=== PATIENT | male | born 1955 | race Caucasian/White ===

== ENCOUNTER → 2017-01-09 | Outpatient (CLI) | payer MEDICARE ==
[~2017-01-09] MED LIST: AMLODIPINE10 MG PO; AMLODIPINE5 M1 PO; ASPIR 8181 MG PO; B COMPLEX1 TA1 PO; CARVEDILOL3.125 M1 PO; CRESTOR10 MG PO; IMDUR 60MG. TAB60 MG PO; LISINOPRIL 10MG10 MG PO; NOMEDS XX; SYNTHROID 0.0.075 MG PO; TYLENOL W/CODEI1 TA2 PO
[2017-01-09 14:00] LABS: BUN 15 mg/dL (7-18)
[2017-01-09 14:02] LABS: GFR (ESTIMATED) 57 ML/MIN (>60)
== END ==
LOC: CARL-LAB 09:44
PROVIDERS: Specialist
DX: R42 Dizziness and giddiness (principal); I95.1 Orthostatic hypotension; G45.9 Transient cerebral ischemic attack, unspecified

== ENCOUNTER 2017-06-27 17:36 | Emergency (ER) | payer MEDICARE ==
[~2017-06-27] VITALS: Ht 182.9 cm; Wt 88.5 kg
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
--- OUTSIDE RECORDS SUMMARY | 2017-06-27 18:08 | External Medical Summary Rpt ---
Author Author , FRIDA GALICIA Address Unknown Phone [email or web address] Care Team Providers Care Electrical Engineering Drafting Officer Name Role Phone ALLRAN JR DURGA, ALLRAN Unavailable Unavailable JR DURGA OSEI HOL, OSEI Unavailable Unavailable HOL BEINEKE HERMILA, BEINEKE Unavailable Unavailable HERMILA BESSON VIVI, BESSON Unavailable Unavailable VIVI BAIRON SHANTELLE, Unavailable Unavailable BAIRON SHANTELLE FALLUJI ROBB, FALLUJI Unavailable Unavailable ROBB GAMBREL CARMELITA, GAMBREL Unavailable Unavailable CARMELITA [facility] Unavailable Unavailable [facility], [facility], Unavailable Unavailable [facility] Un[facility], [facility] Unavailable Unavailable MEDICAL G, [facility] MEDICAL G [facility], [facility] Unavailable Unavailable [facility] Un[facility], [facility], Unavailable Unavailable [facility] TABATHA VIVI, TABATHA Unavailable Unavailable VIVI [facility] Unavailable Unavailable INTERNAL MED, [facility] EVANGELISTA SCO, [facility] Unavailable Unavailable Truman Lamb MD, Unavailable Unavailable Truman Lamb MD [facility], Unavailable Unavailable [facility] Purpose Continuity of Care Document - 01-03-2014 through 2016 Problems Code Diagnosis DOS Provider Status M542 CERVICALGIA 09-15-2016 [facility] INTERNAL MED Z1211 ENCOUNTER 09-05-2016 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 Z23 ENCOUNTER 08-26-2016 [place] FOR [facility]LEY IMMUNIZATIO INTERNAL N MED E039 HYPOTHYROID 08-13-2016 [facility] UNSPECIFIED INC E785 HYPERLIPIDE 08-13-2016 [facility] UNSPECIFIED INC G2581 RESTLESS 08-13-2016 [facility] SYNDROME INC Z0000 ENCOUNTER 08-12-2016 [place] GEN ADULT VALLEY MED EXAM INTERNAL W/O MED ABNORMAL FIND R030 ELEVATED 08-01-2016 [facility] BLOOD-PRESS VALLEY URE READING INTERNAL WITHOUT DX MED HTN M5441 LUMBAGO 07-07-2016 [place] WITH VALLEY SCIATICA INTERNAL RIGHT SIDE MED [id number] UNS ROT 06-30-2016 [facility] TEAR/RUPT INC UNS SHOULDER NOT TRAUMAT L821 OTHER 05-20-2016 [place] SEBORRHEIC VALLEY KERATOSIS INTERNAL MED G8918 OTHER ACUTE 05-07-2016 [place] [facility] POST[facility]U [facility] RAL PAIN R86135 PAIN IN 05-07-2016 [place] [facility] RIGHT SERV SHOULDER [facility] L19736 INCMPL RC 05-07-2016 [place] [facility] TEAR/RUPT SERVICES RT SHOULDER NOT SPEC TRAUM M7521 BICIPITAL 05-07-2016 [place] [facility] TENDINITIS SERVICES RIGHT SHOULDER M7581 OTHER 05-07-2016 [place] [facility] LESIONS RIGHT SHOULDER R001 BRADYCARDIA 05-02-2016 [facility] UNSPECIFIED I639 CEREBRAL 04-11-2016 [facility] HEALTH UNSPECIFIED MEDICAL G L03686 ENCOUNTER 04-11-2016 [facility] PREPROCEDUR MEDICAL G AL CARIOVASCUL AR EXAM Z8673 PERSONAL HX 03-25-2016 [place] [facility] TIA & SERV CEREB [facility] INFARCT NO RESID DEFICIT [id number] OTHER 01-24-2016 [facility] SPECIFIC [facility] ARTHROPATHI INC ES NEC RIGHT SHOULDER [id number] EFFUSION 01-24-2016 [place] [facility] R609 EDEMA 01-24-2016 [place] [facility]PEC[facility] M1990 UNSPECIFIED 11-05-2015 [facility] OSTEOARTHRI INC TIS UNSPECIFIED SITE R062 WHEEZING 10-16-2015 [place] [facility] INTERNAL MED J159 UNSPECIFIED 10-09-2015 [place] BACTERIAL VALLEY PNEUMONIA INTERNAL MED M791 MYALGIA 10-02-2015 [place] INTERNAL MED 2724 OTHER AND 09-02-2015 [place] UNSPECIFIED VALLEY INTERNAL [facility] 57570 UNSPECIFIED 08-01-2015 [place] 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 98689 UNSPECIFIED 08-01-2015 [place] [facility] ARTHROPATHY INTERNAL SHOULDER MED REGION 7291 UNSPECIFIED 08-01-2015 [place] MYALGIA VALLEY AND INTERNAL MYOSITIS MED 244.9 244.9 01-05-2014 [place] HYPOTHYROID [facility] 401.0 401.0 01-05-2014 [place] MALIGNANT [facility] HYPERTENS Hospital N 441.4 441.4 ABDOM 01-05-2014 [place] AORTIC [facility] Allergies, Adverse Reactions, Alerts Type Drug Allergy Adverse Reaction to Substance Substance Reaction Severity Nkda - No Known Drug Unknown Unknown Allergies Medications Na ND Rx Da Fi Fi Am Da Di Ph RX Ph St me C No te ll ll ou ys ag ar # ys at rm s nt no ma ic us Or Da si cy ia de te s n re d IS 68 02 0 No OS 08 -0 OR 40 6- Lo BI 59 20 ng DE 10 14 er 1 MN Ac ti ER ve 30 MG TA BL ET AM 51 02 1 No LO 07 -0 DI 90 5- Lo PI 45 20 ng NE 22 14 er 0 BE Ac SY ti LA ve TE 10 MG TA B SY 00 02 1 No NT 07 -0 HR 44 5- Lo OI 55 20 ng D 21 14 er 50 1 Ac MC ti G ve TA BL ET NT 00 02 1 No G 40 -0 0. 91 4- Lo 2 48 20 ng MG 20 14 er /M 2 L Ac IN ti ve D5 W AM 51 02 1 No LO 07 -0 DI 90 4- Lo PI 45 20 ng NE 22 14 er 0 BE Ac SY ti LA ve TE 10 MG TA B LO 00 02 2 No VE 07 -0 NO 50 4- Lo X 62 20 ng 40 04 14 er 1 MG Ac /0 ti .4 ve ML SY RI NG E IS 00 02 0 No OV 27 -0 UE 01 4- Lo -3 31 20 ng 70 65 14 er 2 76 Ac % ti IN ve FU S RACHAEL TT LE RA 63 02 0 No D- 80 -0 SA 70 4- Lo LI 10 20 ng NE 07 14 er 5A FL Ac US ti H ve 10 ML SY RI NG E MA 00 02 2 No PA 90 -0 P 41 4- Lo 32 98 20 ng 5 26 14 er MG 1 Ac TA ti BL ve ET Immunization Name Date Rout CVX Reac Dose Comm Prov Is Faci e tion ent ider Refu lity Give sed n IIV4 11-0 158 YOLY No LICK 3-20 ON ING VACC 15 VIVI VALL EY SPLI INTE T RNAL VIRU MED S 0.5 ML DOS FOR IM USE Vital Signs 01-05-2014 16:30 Name Value Interpretat Reference Comment ion Range Body 97.9 [degF] Temperature BP 85 mm[Hg] Diastolic BP Systolic 125 mm[Hg] Heart 55 /min Rate/Pulse Respiratory 16 /min Rate 01-05-2014 16:00 Name Value Interpretat Reference Comment ion Range O2% 96 % 01-03-2014 17:15 Name Value Interpretat Reference Comment ion Range O2% 97 % 01-03-2014 16:41 Name Value Interpretat Reference Comment ion Range Body 98.0 [degF] Temperature BP 94 mm[Hg] Diastolic BP Systolic 158 mm[Hg] Heart 52 /min Rate/Pulse Height 182.88 cm Respiratory 16 /min Rate Weight 179 [lb_av] Measured Weight 81.222 kg Measured Results Labs Lab Lab Date Result Refere Interp Status Commen Order Detail nces retati t Range on BASIC METABOLIC PANEL (01-05-2014 06:00) Glucose 91 74-106 complet 014 mg/dL ed Bld-mCn 06:00 c BUN 19 7-18 complet Bld-mCn 014 mg/dL ed c 06:00 Creat 1.4 0.8-1.3 complet SerPl-m 014 mg/dL ed Cnc 06:00 Creat 69 50-200 complet Cl 014 ML/MIN ed predict 06:00 ed SerPl C-G-vRa te GFR/BSA 52 Greater complet .pred 014 ML/MIN than ed SerPl 06:00 60 Schwart z-vRate Sodium 141 136-145 complet SerPl-s 014 mmoL/L ed Cnc 06:00 Potassi 3.9 3.5-5.1 complet um 014 mmoL/L ed SerPl-s 06:00 Cnc Chlorid 102 98-107 complet e 014 mmoL/L ed SerPl-s 06:00 Cnc CO2 02-06-2 30 21.0-32 complet SerPl-s 014 mmoL/L .0 ed Cnc 06:00 Calcium 8.6 8.5-10. complet 014 mg/dL 1 ed SerPl-m 06:00 Cnc CBC with AUTO DIFF (01-05-2014 06:00) WBC # --2 5.9 4.8-10. complet Bld 014 K/MM3 8 ed Auto 06:00 RBC # 01-05-2 3.76 4.6-6.2 complet Bld 014 M/mm3 ed Auto 06:00 Hgb 2 11.9 14.1-18 complet Bld-mCn 014 g/dL .0 ed c 06:00 Hct Fr 35.6 % 42.0-52 complet Bld 014 .0 ed 06:00 MCV RBC 94.8 fl 82.2-97 complet 014 .8 ed 06:00 MCH RBC 31.7 pg 27-31.2 complet Qn 014 ed Auto 06:00 MEAN 33.4 31.8-35 complet CORPUSC 014 g/dl .4 ed ULAR 06:00 HGB CONC RDW RBC 17.0 % 11.5-17 complet Auto 014 .5 ed 06:00 Platele 237 142-424 complet t Bld 014 K/mm3 ed Ql 06:00 Manual MEAN 9.0 fl 7.4-10. complet PLATELE 014 4 ed T 06:00 VOLUME Granulo 72.7 % 37.0-80 complet cytes 014 .0 ed Fr Bld 06:00 Auto LYMPH % 2 18.9 % 10-50 complet 014 ed 06:00 Monocyt 6.7 % 1.7-9.3 complet es Fr 014 ed Bld 06:00 Auto Eosinop 2 1.0 % 0.1-12. complet hil Fr 014 0 ed Bld 06:00 Auto Basophi 2 0.7 % 0.1-2.0 complet ls Fr 014 ed Bld 06:00 Auto Granulo 01-05-2 4.3 1.3-8.0 complet cytes # 014 K/mm3 ed Bld 06:00 Auto Lymphoc 1.1 0.7-4.5 complet ytes Fr 014 K/mm3 ed Bld 06:00 Auto Monocyt 0.4 0.1-1.0 complet es # 014 K/mm3 ed Bld 06:00 Auto Eosinop 0.1 0.0-0.4 complet hil # 014 K/mm3 ed Bld 06:00 Auto Basophi 0.0 0-0.2 complet ls # 014 K/MM3 ed Bld 06:00 Auto BASIC METABOLIC PANEL (01-04-2014 06:05) Glucose 110 74-106 complet 014 mg/dL ed Bld-mCn 06:05 c BUN 14 7-18 complet Bld-mCn 014 mg/dL ed c 06:05 Creat 1.4 0.8-1.3 complet SerPl-m 014 mg/dL ed Cnc 06:05 Creat 69 50-200 complet Cl 014 ML/MIN ed predict 06:05 ed SerPl C-G-vRa te GFR/BSA 52 Greater complet .pred 014 ML/MIN than ed SerPl 06:05 60 Schwart z-vRate Sodium 139 136-145 complet SerPl-s 014 mmoL/L ed Cnc 06:05 Potassi 3.5 3.5-5.1 complet um 014 mmoL/L ed SerPl-s 06:05 Cnc Chlorid 103 98-107 complet e 014 mmoL/L ed SerPl-s 06:05 Cnc CO2 31 21.0-32 complet SerPl-s 014 mmoL/L .0 ed Cnc 06:05 Calcium 8.5 8.5-10. complet 014 mg/dL 1 ed SerPl-m 06:05 Cnc CBC with AUTO DIFF (01-04-2014 06:05) WBC # 05-2 8.0 4.8-10. complet Bld 014 K/mm3 8 ed Auto 06:05 RBC # 01-04-2 3.63 4.6-6.2 complet Bld 014 M/mm3 ed Auto 06:05 Hgb 02-05-2 10.8 14.1-18 complet Bld-mCn 014 g/dL .0 ed c 06:05 Hct Fr 33.5 % 42.0-52 complet Bld 014 .0 ed 06:05 MCV RBC 92.4 fL 82.2-97 complet 014 .8 ed 06:05 MCH RBC 29.8 pg 27-31.2 complet Qn 014 ed Auto 06:05 MEAN 32.2 31.8-35 complet CORPUSC 014 g/dl .4 ed ULAR 06:05 HGB CONC RDW RBC 16.4 % 11.5-17 complet Auto 014 .5 ed 06:05 Platele 240 142-424 complet t Bld 014 K/mm3 ed Ql 06:05 Manual Granulo 83.0 % 37.0-80 complet cytes 014 .0 ed Fr Bld 06:05 Auto LYMPH % 13.8 % 10-50 complet 014 ed 06:05 Monocyt 3.2 % 1.7-9.3 complet es Fr 014 ed Bld 06:05 Auto Granulo 6.6 1.3-8.0 complet cytes # 014 K/mm3 ed Bld 06:05 Auto Lymphoc 1.1 0.7-4.5 complet ytes Fr 014 K/mm3 ed Bld 06:05 Auto Monocyt 0.3 0.1-1.0 complet es # 014 K/mm3 ed Bld 06:05 Auto URINALYSIS/COMPLETE (01-03-2014 19:15) URINE YELLOW YELLOW complet COLOR 014 ed 19:15 URINE Sl CLEAR complet APPEARA 014 Cloudy ed NCE 19:15 URINE NEGATIV NEG complet GLUCOSE 014 E ed - 19:15 DIPSTIC K URINE NEGATIV NEG complet BILIRUB 014 E ed IN - 19:15 DIPSTIC K URINE NEGATIV NEG complet KETONE 014 E mg/dL ed 19:15 URINE 1.025 1.005-1 complet SPECIFI 014 UNK .030 ed C 19:15 GRAVITY URINE 2+ NEG complet BLOOD 014 ed 19:15 URINE 7.0 UNK 5.0-8.5 complet PH 014 ed 19:15 URINE 2+ NEG complet PROTEIN 014 mg/dL ed - 19:15 DIPSTIC K URINE 0.2 NEG complet UROBILI 014 E.U./dL ed NOGEN - 19:15 DIPSTIC K URINE NEGATIV NEG complet NITRATE 014 E ed - 19:15 DIPSTIC K URINE NEGATIV NEG complet LEUK 014 E ed ESTERAS 19:15 E URINE 20-50 0 complet RBC 014 rbc/hpf ed 19:15 URINE 20-50 O complet WBC 014 wbc/hpf ed 19:15 URINE 3-5 OCC complet SQUAMOU 014 #/hpf ed S CELLS 19:15 COMPREHENSIVE METABOLIC PANEL (01-03-2014 17:00) Glucose 108 74-106 complet 014 mg/dL ed Bld-mCn 17:00 c BUN 16 7-18 complet Bld-mCn 014 mg/dL ed c 17:00 Creat 1.3 0.8-1.3 complet SerPl-m 014 mg/dL ed Cnc 17:00 Creat 73 50-200 complet Cl 014 ML/MIN ed predict 17:00 ed SerPl C-G-vRa te GFR/BSA 57 Greater complet .pred 014 ML/MIN than ed SerPl 17:00 60 Schwart z-vRate Sodium 140 136-145 complet SerPl-s 014 mmoL/L ed Cnc 17:00 Potassi 4.3 3.5-5.1 complet um 014 mmoL/L ed SerPl-s 17:00 Cnc Chlorid 103 98-107 complet e 014 mmoL/L ed SerPl-s 17:00 Cnc CO2 31 21.0-32 complet SerPl-s 014 mmoL/L .0 ed Cnc 17:00 Calcium 8.6 8.5-10. complet 014 mg/dL 1 ed SerPl-m 17:00 Cnc Prot 01-03-2 7.1 6.4-8.2 complet SerPl-m 014 gm/dL ed Cnc 17:00 Albumin 02--2 3.3 3.4-5.0 complet 014 gm/dL ed SerPl-m 17:00 Cnc Globuli 01-03-2 3.8 1.3-3.2 complet n 014 gm/dL ed Ser-mCn 17:00 c Albumin 01-03-2 0.9 UNK 1.1-1.8 complet /Glob 014 ed SerPl-m 17:00 Rto Bilirub 01-03-2 0.2 0.2-1.0 complet 014 mg/dL ed SerPl-m 17:00 Cnc AST 01-03-2 17 U/L 15-37 complet SerPl-c 014 ed Cnc 17:00 ALT 01-03-2 18 U/L 12-78 complet SerPl-c 014 ed Cnc 17:00 ALP 01-03-2 105 U/L 50-136 complet SerPl-c 014 ed Cnc 17:00 THYROID STIM HORMONE (01-03-2014 17:00) THYROID 2 116.01 0.358-3 complet STIM 014 uIU/ml .740 ed HORMONE 17:00 T3Free SerPl-mCnc (01-03-2014 17:00) T3Free 01-03-2 2 pg/dL 230-420 complet SerPl-m 014 ed Cnc 17:00 T4 Free SerPl-mCnc (01-03-2014 17:00) T4 Free 01-03-2 0.27 0.76-1. complet 014 ng/dL 46 ed SerPl-m 17:00 Cnc D Dimer PPP (01-03-2014 17:00) D Dimer 01-03-2 1600 0-400 High complet PPP 014 ng/mL alert ed 17:00 CBC with AUTO DIFF (01-03-2014 17:00) WBC # 02-04-2 12.3 4.8-10. complet Bld 014 K/MM3 8 ed Auto 17:00 RBC # 02-04-2 3.64 4.6-6.2 complet Bld 014 M/mm3 ed Auto 17:00 Hgb 02-04-2 11.6 14.1-18 complet Bld-mCn 014 g/dL .0 ed c 17:00 Hct Fr 01-03-2 34.9 % 42.0-52 complet Bld 014 .0 ed 17:00 MCV RBC 04-2 95.8 fl 82.2-97 complet 014 .8 ed 17:00 MCH RBC 2 31.8 pg 27-31.2 complet Qn 014 ed Auto 17:00 MEAN 2 33.2 31.8-35 complet CORPUSC 014 g/dl .4 ed ULAR 17:00 HGB CONC RDW RBC 04-2 16.6 % 11.5-17 complet Auto 014 .5 ed 17:00 Platele 01-03-2 231 142-424 complet t Bld 014 K/mm3 ed Ql 17:00 Manual MEAN 2 9.4 fl 7.4-10. complet PLATELE 014 4 ed T 17:00 VOLUME Granulo -04-2 90.9 % 37.0-80 complet cytes 014 .0 ed Fr Bld 17:00 Auto LYMPH % -04-2 5.0 % 10-50 complet 014 ed 17:00 Monocyt 02-04-2 3.8 % 1.7-9.3 complet es Fr 014 ed Bld 17:00 Auto Eosinop 02-04-2 0.1 % 0.1-12. complet hil Fr 014 0 ed Bld 17:00 Auto Basophi -04-2 0.2 % 0.1-2.0 complet ls Fr 014 ed Bld 17:00 Auto Granulo -04-2 11.2 1.3-8.0 complet cytes # 014 K/mm3 ed Bld 17:00 Auto Lymphoc -04-2 0.6 0.7-4.5 complet ytes Fr 014 K/mm3 ed Bld 17:00 Auto Monocyt 02-04-2 0.5 0.1-1.0 complet es # 014 K/mm3 ed Bld 17:00 Auto Eosinop 02-04-2 0.0 0.0-0.4 complet hil # 014 K/mm3 ed Bld 17:00 Auto Basophi -04-2 0.0 0-0.2 complet ls # 014 K/MM3 ed Bld 17:00 Auto Procedures Procedure DOS Code Location Performer Comment CYANOCOBA 84641 [facility] PALLAVI [facility] VITAMIN INC INC B-12 [place] [address] [facility] MAGNESIUM 6 [facility] INC INC COLLECTIO 87279 [facility] N VENOUS 6 [facility] BLOOD INC INC VENIPUNCT URE COMPREHEN 22564 [facility] SIVE 6 [facility] [place] [address] [facility] THYROID 6 [facility] STIMULATI INC INC NG HORMONE TSH LIPID 27975 [facility] PANEL 6 [facility] INC INC BLOOD 88771 [facility] COUNT 6 [facility] COMPLETE INC INC AUTO&AUTO DIFRNTL WBC THERAPEUT 87494 [facility] COL[facility] IC PX 1/> 6 [facility] AREAS INC INC EACH 15 MIN EXERCISES THERAPEUT 11271 [facility] COLMENARES IC PX 1/> 6 [facility] AREAS INC INC EACH 15 MIN EXERCISES THERAPEUT 65185 [facility] IC 6 [facility] PROPHYLAC INTERNAL TIC/DX MED INJECTION SUBQ/IM INJECTION J3301 [facility] O[facility]I 6 [facility] HOL TRIAMCINO INTERNAL LONE MED ACETONIDE NOS 10 MG UNCLASSIF J3490 [facility] IED DRUGS 6 [facility] INC INC APPL 24071 [facility] MODALITY 6 [facility] 1/> AREAS INC INC ULTRASOUN D EA 15 MIN THERAPEUT 65198 [facility] CAPPSON IC PX 1/> 6 [facility] AREAS INC INC EACH 15 MIN EXERCISES APPL 54565 [facility] MODALITY 6 [facility] 1/> AREAS INC INC IONTOPHOR ESIS EA 15 MIN THERAPEUT 06065 [facility] COLMENARES IC PX 1/> 6 [facility] AREAS INC INC EACH 15 MIN EXERCISES THERAPEUT 58675 [facility] COLMENARES IC PX 1/> 6 [facility] AREAS INC INC EACH 15 MIN EXERCISES THERAPEUT 07569 [facility]EDRA IC PX 1/> 6 [facility] AREAS INC INC EACH 15 MIN EXERCISES THERAPEUT 66870 [facility] COLMENARES IC PX 1/> 6 [facility] AREAS INC INC EACH 15 MIN EXERCISES THERAPEUT 26203 [facility] COLMENARES IC PX 1/> 6 [facility] AREAS INC INC EACH 15 MIN EXERCISES THERAPEUT 82308 [facility] COLMENARES IC PX 1/> 6 [facility] AREAS INC INC EACH 15 MIN EXERCISES THERAPEUT 18870 [facility] COLMENARES IC PX 1/> 6 [facility] AREAS INC INC EACH 15 MIN EXERCISES MANUAL 26434 [facility] THERAPY 6 [facility] TQS 1/> [facility] INC REGIONS EACH 15 MINUTES E-STIM G0283 [facility] COLMENARES 1/> AREAS 6 [facility] OT THAN [facility] INC WND CARE PART TX PLAN E-STIM G0283 [facility] 1/> AREAS 6 [facility] WND CARE PART TX PLAN THERAPEUT 68790 [facility] COLMENARES IC PX 1/> 6 [facility] AREAS INC INC EACH 15 MIN EXERCISES THERAPEUT 48001 [facility] COLMENARES IC PX 1/> 6 [facility] AREAS INC INC EACH 15 MIN EXERCISES MANUAL 08631 [facility] THERAPY 6 [facility] TQS 1/> [facility] INC REGIONS EACH 15 MINUTES E-STIM G0283 [facility] COLMENARES 1/> AREAS 6 [facility] OT THAN INC INC WND CARE PART TX PLAN PHYSICAL 96796 [facility] THERAPY 6 [facility] EVALUATIO INC INC N SINGLE [address]97 [place] NERVE 6 MEDICAL VIVI BLOCK SERV INJECTION FOUNDATIO ARM N NERVE ARTHROSCO 25591 [place] [facility]IST[place] SCO PY 6 MEDICAL SHOULDER SERV ROTATOR FOUNDATIO CUFF N REPAIR ANES 65207 [place] GAMBREL ARTHRS 6 MEDICAL CARMELITA HUMERAL SERVICES H/N STRNCLAV & SHOULDER NOS ARTHROSCO [address] [place] [facility]ANGEL[facility] SCO PY 6 MEDICAL SHOULDER SERV W/[place] [address] [place] GUIDANCE 6 MEDICAL VIVI NEEDLE SERV PLACEMENT FOUNDATIO IMG S&I N ARTHROSCO 99368 [place] [facility] SCO PY 6 MEDICAL SHOULDER SERV BICEPS FOUNDATIO TENODESIS N ECG 03830 [facility] ROUTINE 6 Y Y ECG HOSPITAL HOSPITAL W/LEAST 12 LDS TRCG ONLY W/O I&R ECG 33240 [place] [facility] [facility] ROUTINE 6 MEDICAL ECG SERV W/LEAST FOUNDATIO 12 LDS N I&R ONLY HRT 0001F [facility] BESSON FAILURE 6 VALLEY VIVI ASSESSED INTERNAL MED ECG 07581 [facility] ROUTINE 6 [facility] ECG MEDICAL W/LEAST G 12 LDS W/I&R INJECTION J3301 [place] EV[place]ELIST[place] SCO 6 MEDICAL TRIAMCINO SERV LONE FOUNDATIO ACETONIDE N NOS 10 MG ARTHROCEN 11622 MIGUEL ÁNGEL EV[facility]A SCO TESIS 6 MEDICAL ASPIR&/IN SERV J MAJOR FOUNDATIO JT/BURSA N W/O US MRI ANY [address]196 [place] BAIRON JT UPPER 6 MEDICAL SHANTELLE EXTREMITY IMAGING W/O ASS CONTRAST MATRL THERAPEUT 58765 [facility] COL[facility] IC PX 1/> 5 [facility] AREAS INC INC EACH 15 MIN EXERCISES THERAPEUT 57421 [facility] COL[facility] IC PX 1/> 5 [facility] AREAS INC INC EACH 15 MIN EXERCISES E-STIM G0283 [facility] 1/> AREAS 5 [facility] WND CARE PART TX PLAN THERAPEUT 98052 [facility] COL[facility]ARES IC PX 1/> 5 [facility] AREAS INC INC EACH 15 MIN EXERCISES APPL 76588 [facility] MODALITY 5 [facility] 1/> AREAS INC INC ULTRASOUN D EA 15 MIN APPL 46536 [facility] MODALITY 5 [facility] 1/> AREAS INC INC ULTRASOUN D EA 15 MIN MANUAL 48268 [facility] THERAPY 5 [facility] TQS 1/> INC INC REGIONS EACH 15 MINUTES UNCLASSIF J3490 [facility] IED DRUGS 5 [facility] INC INC THERAPEUT 80596 [facility] COL[facility] IC PX 1/> 5 [facility] AREAS INC INC EACH 15 MIN EXERCISES APPL 26594 [facility] MODALITY 5 [facility] 1/> AREAS INC INC IONTOPHOR ESIS EA 15 MIN APPL 85288 [facility] MODALITY 5 [facility] 1/> AREAS INC INC IONTOPHOR ESIS EA 15 MIN THERAPEUT 75779 [facility] COLMENARES IC PX 1/> 5 [facility] INC EACH 15 MIN EXERCISES UNCLASSIF J3490 [facility] IED DRUGS 5 [facility] INC PHYSICAL 66021 [facility] THERAPY 5 [facility] EV[facility] INC INC N RADEX 81475 [place] EUGEN[facility] SHOULDER 5 MEDICAL HERMILA COMPLETE IMAGING MINIMUM 2 ASS VIEWS DEMO&/MARYLOU 57931 [facility] L OF PT 5 [facility] UTILIZ INTERNAL AERSL MED GEN/NEB/I NHLR/IP THERAPEUT 76226 [facility] IC 5 [facility] PROPHYLAC INTERNAL TIC/DX MED INJECTION SUBQ/IM NONINVASI 63291 [facility] VE 5 [facility] EAR/PULSE INTERNAL OXIMETRY MED SINGLE DETER INJECTION J0696 [facility] 5 [facility] CEFTRIAXO INTERNAL NE SODIUM MED PER 250 MG IM ADM 16123 [facility] PRQ ID 5 [facility] SUBQ/IM INTERNAL NJXS 1 MED VACCINE IIV4 VACC 34899 [facility] SPLIT 5 [facility] VIRUS 0.5 INTERNAL ML DOS MED FOR IM USE COLLECTIO 95090 [facility] N VENOUS 5 [facility] BLOOD INTERNAL VENIPUNCT MED URE Encounters Encounter Start End Date Code Location Performer Type Date OFFICE 57921 [facility] OUT[facility]IEN 6 6 [facility] T VISIT INTERNAL 15 MED MINUTES OFFICE 92579 [facility] MEGAN ARNDT OUTPATIEN 6 6 PHYSICIAN DURGA T NEW 20 S GROUP MINUTES OFFICE 09955 [place] [facility] OUTPATI[facility] 6 6 MEDICAL T VISIT SERV 15 FOUNDATIO MINUTES N OFFICE 26421 [facility] 6 6 [facility] T VISIT INTERNAL 15 MED MINUTES [facility]OSP[facility] - 6 6 [facility] INC T OFFICE 13694 [facility] OUT[facility]IEN 6 6 [facility] T VISIT INTERNAL 25 MED MINUTES OFFICE 74759 [facility] OUTPATIEN 6 6 [facility] T VISIT 5 INTERNAL MINUTES MED OFFICE 76924 [facility] 6 6 [place] [facility] T VISIT INTERNAL 15 MED MINUTES OFFICE 13629 [facility] 6 6 [place] [facility] T VISIT INTERNAL 15 MED MINUTES [facility] - 6 6 [facility] OUTPATIEN COUNTS INCLUDE 234 [facility] AT [facility] - 6 6 [facility] OUTPATIEN INC T OFFICE 21630 [facility] OUTPATIEN 6 6 [place] [facility] T VISIT INTERNAL 15 MED MINUTES HOSPITAL [facility] - 6 6 [facility] OUTPATIEN [facility] T OFFICE 15817 UNIV[facility] OUTPATIEN 6 6 Y T VISIT 5 HOSPITAL MINUTES [facility] 40950 [facility] OUTPATIEN 6 6 [facility] T VISIT INTERNAL 15 MED MINUTES OFFICE 33928 [facility] OUTPATIEN 6 6 [place] [facility] T VISIT 5 INTERNAL MINUTES MED OFFICE 75027 [facility] 6 6 [facility] ROB[facility] T VISIT MEDICAL 25 G MINUTES OFFICE 81366 MIGUEL ÁNGEL ANGLINO OUTPATIEN 6 6 MEDICAL T VISIT SERV 25 FOUNDATIO MINUTES N OFFICE 39984 MIGUEL ÁNGEL ANGLINO CONSULTAT 6 6 MEDICAL ION SERV NEW/ESTAB F[facility]ATIO PATIENT N 60 MIN [facility]PITAL [facility] - 6 6 [facility] OUTPATIEN INC T OFFICE 68381 [facility] OUTPATIEN 6 6 [place] V[facility] T VISIT INTERNAL 15 MED MINUTES HOSPITAL [facility] - 5 5 [facility] OUTPATIEN INC [facility] D[facility]RA - 5 5 [facility] OUTPATIEN INC T OFFICE 48679 [facility] OUTPATIEN 5 5 [place] VIV[facility] T VISIT INTERNAL 15 MED MINUTES OFFICE 34733 [facility] OUTPATIEN 5 5 [place] [facility] T VISIT INTERNAL 15 MED MINUTES OFFICE 81224 [facility] OUT[facility] 5 5 [place] [facility] T VISIT INTERNAL 15 MED MINUTES OFFICE 83925 [facility] OUT[facility] 5 5 [place] [facility] T VISIT INTERNAL 15 MED MINUTES OFFICE 11904 [facility] OUT[facility]IEN 5 5 [place] V[facility] T VISIT INTERNAL 25 MED MINUTES Inpatient [facility] Dedra Lamb MD (IN) 4 16:24 4 16:30 [facility]
--- OUTSIDE RECORDS SUMMARY | 2017-06-27 18:08 | External Medical Summary Rpt ---
Author Author , FRIDA GALICIA Address Unknown Phone [email or web address] Care Team Providers Care Brick Machine Operator Name Role Phone ALLRAN JR DURGA, ALLRAN Unavailable Unavailable JR DURGA OSEI HOL, OSEI Unavailable Unavailable HOL BEINEKE HERMILA, BEINEKE Unavailable Unavailable HERMILA BESSON VIVI, BESSON Unavailable Unavailable VIVI BAIRON SHANTELLE, Unavailable Unavailable BAIRON SHANTELLE FALLUJI ROBB, FALLUJI Unavailable Unavailable ROBB GAMBREL CARMELITA, GAMBREL Unavailable Unavailable CARMELITA [facility] Unavailable Unavailable INC, [facility], Unavailable Unavailable [facility] Un[facility] Unavailable [facility], [facility] Unavailable [facility]available MEDICAL G, [facility] G [facility], [facility] Unavailable Unavailable [facility], Un[facility]available [facility] TABATHA VIVI, TABATHA Unavailable Unavailable VIVI [facility] Unavailable Unavailable INTERNAL MED, [facility] INTERNAL MED [facility], [facility] Unavailable Unavailable Truman Lamb MD, Unavailable Unavailable Truman Lamb MD [facility], Unavailable Unavailable [facility] Purpose Continuity of Care Document - 01-03-2014 through 2016 Problems Code Diagnosis DOS Provider Status M542 CERVICALGIA 09-15-2016 [facility] INTERNAL MED Z1211 ENCOUNTER 09-05-2016 [facility] SCREENING PHYSICIANS MALIGNANT GROUP NEOPLASM OF COLON L19169 UNS 08-28-2016 [facility] TENDON RT UPPER ARM [id number] COMPLETE 08-28-2016 [facility] SERV TEAR/RUPT [facility]OUND[facility] RT SHLDR NOT TRAUMAT Z9889 OTHER 08-28-2016 [place] [facility] SPECIFIED SERV POSTPROCEDU [facility] STATES I10 ESSENTIAL 08-26-2016 [facility] HYPERTENSIO INTERNAL N MED I2510 ASHD [place] BAND 08-26-2016 [place] 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 MED H43979 UNS ROT 06-30-2016 [facility] TEAR/RUPT INC UNS SHOULDER NOT TRAUMAT L821 OTHER 05-20-2016 [facility] SEBORRHEIC [facility]LEY KERATOSIS INTERNAL MED G8918 OTHER ACUTE 05-07-2016 [facility] POSTPROCEDU [facility] RAL PAIN J52157 PAIN IN 05-07-2016 [facility] RIGHT SERV SHOULDER [facility] S04180 INCMPL RC 05-07-2016 [facility] TEAR/RUPT SERVICES RT SHOULDER NOT SPEC TRAUM M7521 BICIPITAL 05-07-2016 [facility] TENDINITIS SERVICES RIGHT SHOULDER M7581 OTHER 05-07-2016 [facility] LESIONS RIGHT SHOULDER R001 BRADYCARDIA 05-02-2016 [facility] UNSPECIFIED I639 CEREBRAL 04-11-2016 [facility] UNSPECIFIED MEDICAL G U03598 ENCOUNTER 04-11-2016 [facility] PREPROCEDUR MEDICAL G AL CARIOVASCUL AR EXAM Z8673 PERSONAL HX 03-25-2016 [facility] TIA & SERV CEREB [facility] INFARCT NO RESID DEFICIT I76552 OTHER 01-24-2016 [facility] SPECIFIC [facility] ARTHROPATHI INC ES NEC RIGHT SHOULDER O79070 EFFUSION 01-24-2016 [facility] RIGHT MEDICAL SHOULD[facility] R609 EDEMA 01-24-2016 [facility] UNSPECIFIED [facility]ICAL IM[facility]ING ASS M1990 UNSPECIFIED 11-05-2015 [facility] OSTEOARTHRI INC TIS UNSPECIFIED SITE R062 WHEEZING 10-16-2015 [facility] INTERNAL MED J159 UNSPECIFIED 10-09-2015 [facility] BACTERIAL VALLEY PNEUMONIA INTERNAL MED M791 MYALGIA 10-02-2015 [facility] INTERNAL MED 2724 OTHER AND 09-02-2015 [facility] UNSPECIFIED VALLEY INTERNAL HYPERLIPIDE [facility] 77666 UNSPECIFIED 08-01-2015 [place] 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 95578 UNSPECIFIED 08-01-2015 [facility] ARTHROPATHY INTERNAL SHOULDER MED REGION 7291 UNSPECIFIED 08-01-2015 [facility] MYALGIA VALLEY AND INTERNAL MYOSITIS MED 244.9 244.9 01-05-2014 [facility]ID [facility] 401.0 401.0 01-05-2014 [facility] MALIGNANT [facility] N 441.4 441.4 ABDOM 01-05-2014 [facility] AORTIC [facility] Allergies, Adverse Reactions, Alerts Type Drug Allergy [...] Procedure DOS Code Location Performer Comment CYANOCOBA 85760 [facility] PALLAVI 6 [facility] VITAMIN [place] [address] [facility] MAGNESIUM 6 [facility] INC INC COLLECTIO 58584 [facility] N VENOUS 6 [facility] BLOOD INC INC VENIPUNCT URE COMPREHEN 27220 [facility] SIVE 6 [facility] [place] [address] [facility] THYROID 6 [facility] STIMULATI INC INC NG HORMONE TSH LIPID 58149 [facility] PANEL 6 [facility] INC INC BLOOD 43664 [facility] COUNT 6 [facility] COMPLETE INC INC AUTO&AUTO DIFRNTL WBC THERAPEUT 10024 [facility] [place] IC PX 1/> 6 [facility] AREAS INC INC EACH 15 MIN EXERCISES THERAPEUT 40823 [facility] [place] IC PX 1/> 6 [facility] AREAS INC INC EACH 15 MIN EXERCISES THERAPEUT 18424 [facility] OSEI IC 6 VALLEY HOL PROPHYLAC INTERNAL TIC/DX MED INJECTION SUBQ/IM INJECTION J3301 [facility] OSEI 6 VALLEY HOL TRIAMCINO INTERNAL LONE MED ACETONIDE NOS 10 MG UNCLASSIF J3490 [facility] IED DRUGS 6 [facility] INC INC APPL 26097 [facility] MODALITY 6 [facility] 1/> AREAS INC INC ULTRASOUN D EA 15 MIN THERAPEUT 54720 [facility] CAPPSON IC PX 1/> 6 [facility] AREAS INC INC EACH 15 MIN EXERCISES APPL 32661 [facility] MODALITY 6 [facility] 1/> AREAS INC INC IONTOPHOR ESIS EA 15 MIN THERAPEUT 53263 [facility] IC PX 1/> 6 [facility] AREAS INC INC EACH 15 MIN EXERCISES THERAPEUT 88439 [facility] COLMEN[facility] IC PX 1/> 6 [facility] AREAS INC INC EACH 15 MIN EXERCISES THERAPEUT 91356 [facility] DEDRA IC PX 1/> 6 [facility] AREAS INC INC EACH 15 MIN EXERCISES THERAPEUT 67708 [facility] COLMENARES IC PX 1/> 6 [facility] AREAS INC INC EACH 15 MIN EXERCISES THERAPEUT 84786 [facility] COLMENAR[facility] IC PX 1/> 6 [facility] AREAS INC INC EACH 15 MIN EXERCISES THERAPEUT 57761 [facility]MEN[facility] IC PX 1/> 6 [facility] AREAS INC INC EACH 15 MIN EXERCISES THERAPEUT 51823 [facility] COLMEN[place] IC PX 1/> 6 [facility] AREAS INC INC EACH 15 MIN EXERCISES MANUAL 88106 [facility] THERAPY 6 [facility] TQS 1/> [facility] INC REGIONS EACH 15 MINUTES E-STIM G0283 [facility] 1/> AREAS 6 [facility] OT THAN [facility] INC WND CARE PART TX PLAN E-STIM G0283 [facility] 1/> AREAS 6 [facility] WND CARE PART TX PLAN THERAPEUT 61216 [facility] COLMENAR[facility] IC PX 1/> 6 [facility] AREAS INC INC EACH 15 MIN EXERCISES THERAPEUT 02983 [facility] COLMENAR[facility] IC PX 1/> 6 [facility] AREAS INC INC EACH 15 MIN EXERCISES MANUAL 20355 [facility] THERAPY 6 [facility] TQS 1/> [facility] INC REGIONS EACH 15 MINUTES E-STIM G0283 [facility] 1/> AREAS 6 [facility] OT THAN INC INC WND CARE PART TX PLAN PHYSICAL 26267 [facility] THERAPY 6 [facility] EVALUATIO INC INC N SINGLE 77217 [place] [facility] NERVE 6 MEDICAL VIVI BLOCK SERV INJECTION FOUNDATIO ARM N NERVE ARTHROSCO 40350 [place] [facility] PY 6 MEDICAL SHOULDER SERV ROTATOR FOUNDATIO CUFF N REPAIR ANES 08949 [place] [facility] ARTHRS 6 MEDICAL CARMELITA HUMERAL SERVICES H/N STRNCLAV & SHOULDER NOS ARTHROSCO 22750 [place] [facility] PY 6 MEDICAL SHOULDER SERV W/[place] [address] [place] [facility] GUIDANCE 6 MEDICAL VIVI NEEDLE SERV PLACEMENT FOUNDATIO IMG S&I N ARTHROSCO 79592 [place] [facility] PY 6 MEDICAL SHOULDER SERV BICEPS FOUNDATIO TENODESIS N ECG 80340 [facility] ROUTINE 6 Y Y ECG HOSPITAL HOSPITAL W/LEAST 12 LDS TRCG ONLY W/O I&R ECG 35569 [place] [facility] ROUTINE 6 MEDICAL ECG SERV W/LEAST FOUNDATIO 12 LDS N I&R ONLY HRT 0001F [facility] FAILURE 6 VALLEY VIVI ASSESSED INTERNAL MED ECG 13049 [facility] FALLU ROUTINE 6 NE [facility]ALTH [facility] ECG MEDICAL W/LEAST G 12 LDS W/I&R INJECTION J3301 [place] [facility] SCO 6 MEDICAL TRIAMCINO SERV LONE FOUNDATIO ACETONIDE N NOS 10 MG ARTHROCEN 85184 MIGUEL ÁNGEL [facility] TESIS 6 MEDICAL ASPIR&/IN SERV J MAJOR FOUNDATIO JT/BURSA N W/O US MRI ANY 80881 [place] BAIRON JT UPPER 6 MEDICAL SHANTELLE EXTREMITY IMAGING W/O ASS CONTRAST MATRL THERAPEUT 52544 [facility] IC PX 1/> 5 [facility] AREAS INC INC EACH 15 MIN EXERCISES THERAPEUT 54981 [facility] IC PX 1/> 5 [facility] AREAS INC INC EACH 15 MIN EXERCISES E-STIM G0283 [facility] 1/> AREAS 5 [facility] WND CARE PART TX PLAN THERAPEUT 99276 [facility] IC PX 1/> 5 [facility] AREAS INC INC EACH 15 MIN EXERCISES APPL 47385 [facility] MODALITY 5 [facility] 1/> AREAS INC INC ULTRASOUN D EA 15 MIN APPL 00078 [facility] MODALITY 5 [facility] 1/> AREAS INC INC ULTRASOUN D EA 15 MIN MANUAL 21352 [facility] THERAPY 5 [facility] TQS 1/> INC INC REGIONS EACH 15 MINUTES UNCLASSIF J3490 [facility] IED DRUGS 5 [facility] INC INC THERAPEUT 26841 [facility] [place] PX 1/> 5 [facility] AREAS INC INC EACH 15 MIN EXERCISES APPL 31016 [facility] MODALITY 5 [facility] 1/> AREAS INC INC IONTOPHOR ESIS EA 15 MIN APPL 27112 [facility] MODALITY 5 [facility] 1/> AREAS INC INC IONTOPHOR ESIS EA 15 MIN THERAPEUT 35305 [facility] [place] PX 1/> 5 [facility] AREAS INC INC EACH 15 MIN EXERCISES UNCLASSIF J3490 [facility] IED DRUGS 5 [facility] INC INC PHYSICAL 28962 [facility] THERAPY 5 [facility] EVALUATIO INC INC N RADEX 41047 [place] EUGENE SHOULDER 5 MEDICAL HERMILA COMPLETE IMAGING MINIMUM 2 ASS VIEWS DEMO&/MARYLOU 43903 [facility] L OF PT 5 VALLEY VIVI UTILIZ INTERNAL AERSL MED GEN/NEB/I NHLR/IP THERAPEUT 11925 [facility] IC 5 [facility] VIVI PROPHYLAC INTERNAL TIC/DX MED INJECTION SUBQ/IM NONINVASI 24644 [facility] VE 5 [facility] VIVI EAR/PULSE INTERNAL OXIMETRY MED SINGLE DETER INJECTION J0696 [facility] 5 [facility] VIVI CEFTRIAXO INTERNAL NE SODIUM MED PER 250 MG IM ADM 09051 [facility] PRQ ID 5 [facility] V[facility]I SUBQ/IM INTERNAL NJXS 1 MED VACCINE IIV4 VACC 38641 [facility] SPLIT 5 [facility]I VIRUS 0.5 INTERNAL ML DOS MED FOR IM USE COLLECTIO 78998 [facility] N VENOUS 5 [facility] VIVI BLOOD INTERNAL VENIPUNCT MED URE Encounters Encounter Start End Date Code Location Performer Type Date OFFICE 90915 [facility] FARNAZ OUTPATIEN 6 6 [facility] T VISIT INTERNAL 15 MED MINUTES OFFICE 42142 [facility] MEGAN ARNDT OUTPATIEN 6 6 PHYSICIAN DURGA T NEW 20 S GROUP MINUTES OFFICE 32759 [place] [facility] OUTPATIEN 6 6 MEDICAL T VISIT SERV 15 FOUNDATIO MINUTES N OFFICE 44358 [facility] OUTPATIEN 6 6 VALLEY T VISIT INTERNAL 15 MED MINUTES [facility]OSPITAL [facility] - 6 6 [facility] OUTPATIEN INC T OFFICE 11432 [facility] OUTPATIEN 6 6 VAL[facility] VIVI T VISIT INTERNAL 25 MED MINUTES OFFICE 17105 [facility] OUTPATIEN 6 6 VALLEY VIVI T VISIT 5 INTERNAL MINUTES MED OFFICE 73699 [facility] OSEI OUTPATIEN 6 6 [facility] T VISIT INTERNAL 15 MED MINUTES OFFICE 22027 [facility] OUTPATIEN 6 6 [facility] T VISIT INTERNAL 15 MED MINUTES [facility] 6 [facility]PATIEN [facility] - 6 6 [facility] OUTPATIEN INC T OFFICE 80553 [facility] OUTPATIEN 6 6 [facility] VIVI T VISIT INTERNAL 15 MED MINUTES [facility] - 6 6 [facility] OUTPATIEN [facility] T OFFICE 63575 UN[facility] OUTPATIEN 6 6 Y T VISIT 5 HOSPITAL MINUTES [facility] T OFF[facility] 96188 [facility] OUTPATIEN 6 6 VALLEY VIVI T VISIT INTERNAL 15 MED MINUTES OFFICE 85629 [facility] OUTPATIEN 6 6 [facility] VIVI T VISIT 5 INTERNAL MINUTES MED OFFICE 37217 [facility] FALLUJI OUTPATIEN 6 6 [facility] ROBB T VISIT MEDICAL 25 G MINUTES OFFICE 53805 MIGUEL ÁNGEL ANGLINO OUTPATIEN 6 6 MEDICAL T VISIT SERV 25 FOUNDATIO MINUTES N OFFICE 82682 MIGUEL ÁNGEL ANGLINO CONSULTAT 6 6 MEDICAL ION SERV NEW/ESTAB FOUNDATIO PATIENT N 60 MIN [facility] - 6 6 [facility] OUTPATIEN INC T OFFICE 02159 [facility] OUTPATIEN 6 6 [facility] VIVI T VISIT INTERNAL 15 MED MINUTES [facility] - 5 5 [facility]PAT[facility] INC [facility] - 5 5 [facility] OUTPATIEN INC T OFFICE 63094 [facility] OUTPATIEN 5 5 [facility] VIVI T VISIT INTERNAL 15 MED MINUTES OFFICE 02216 [facility] OUTPATIEN 5 5 [facility] VIVI T VISIT INTERNAL 15 MED MINUTES OFFICE 96507 [facility] OUTPATIEN 5 5 [facility] VIVI T VISIT INTERNAL 15 MED MINUTES OFFICE 47006 [facility] OUTPATIEN 5 5 [facility] VIVI T VISIT INTERNAL 15 MED MINUTES OFFICE 45551 [facility] OUTPATIEN 5 5 [facility] VIVI T VISIT INTERNAL 25 MED MINUTES Inpatient [facility] Dedra Lamb MD (IN) 4 16:24 4 16:30 [facility]
--- OUTSIDE RECORDS SUMMARY | 2017-06-27 18:09 | External Medical Summary Rpt ---
Demographics Preferred Language Grenadian Marital Status Unknown Religion Affiliation Unknown Race Unknown Ethnic Group Unknown Author Author , FRIDA GALICIA Address Unknown Phone Immunization Unable to retrieve immunization data due to connection failure with Immunization Registry. Please try again later.
--- OUTSIDE RECORDS SUMMARY | 2017-06-27 18:09 | External Medical Summary Rpt ---
Author Author FRIDA Middleton, FRIDA Middleton Organization [employer] Address Unknown Phone Unavailable
--- OUTSIDE RECORDS SUMMARY | 2017-06-27 18:09 | External Medical Summary Rpt ---
Author Author , FRIDA GALICIA Address Unknown Phone [email or web address] Care Team Providers Care Chief Fundraising Officer Name Role Phone ALLRAN JR DURGA, ALLRAN Unavailable Unavailable JR DURGA OSEI HOL, OSEI Unavailable Unavailable HOL BESSON VIVI, BESSON Unavailable Unavailable VIVI FALLUJI ROBB, FALLUJI Unavailable Unavailable ROBB GAMBREL CARMELITA, GAMBREL Unavailable Unavailable CARMELITA [facility] Un[facility] Unavailable INC, [facility], Unavailable Unavailable [facility] Unavailable Unavailable MEDICAL G, [facility], [facility] Unavailable Unavailable [facility], Unavailable Unavailable [facility] TABATHA VIVI, TABATHA Unavailable Unavailable VIVI [facility] [place] Unavailable Unavailable [facility], [facility], [facility] Unavailable Unavailable [facility], Unavailable Unavailable [facility] Purpose Continuity of Care Document - 08-01-2015 through 2016 Problems Code Diagnosis DOS Provider Status M542 CERVICALGIA 09-15-2016 [facility] INTER[facility] MED Z1211 ENCOUNTER 09-05-2016 [facility] SCREENING PHYSICIANS MALIGNANT GROUP NEOPLASM OF COLON [id number] UNS 08-28-2016 [facility] TENDON RT UPPER ARM V60049 COMPLETE 08-28-2016 [facility] TEAR/RUPT [facility]OUNDATION RT SHLDR NOT TRAUMAT Z9889 OTHER 08-28-2016 [place] [facility] SPECIFIED SERV POSTPROCEDU [facility] STATES I10 ESSENTIAL 08-26-2016 [facility] HYPERTENSIO INTERNAL N MED I2510 ASHD RESIGHINI 08-26-2016 [facility] 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 MED G51673 UNS ROT 06-30-2016 [facility] TEAR/RUPT INC UNS SHOULDER NOT TRAUMAT L821 OTHER 05-20-2016 [facility] SEBORRHEIC [facility]LEY KERATOSIS INTERNAL MED G8918 OTHER ACUTE 05-07-2016 [facility] POST[facility]U [facility] EM[facility] RAL PAIN U63558 PAIN IN 05-07-2016 [facility] RIGHT SERV SH[facility]ER [facility] E54280 INCMPL RC 05-07-2016 [facility] TEAR/RUPT SERVICES RT SHOULDER NOT SPEC TRAUM M7521 BICIPITAL 05-07-2016 [facility] TENDINITIS SERVICES RIGHT SHOULDER M7581 OTHER 05-07-2016 [facility] LESIONS RIGHT SHOULDER R001 BRADYCARDIA 05-02-2016 [facility] UNSPECIFIED I639 CEREBRAL 04-11-2016 [facility] UNSPECIFIED MEDICAL G H18382 ENCOUNTER 04-11-2016 [facility] PREPROCEDUR MEDICAL G AL CARIOVASCUL AR EXAM Z8673 PERSONAL HX 03-25-2016 [place] [facility] TIA & SERV CEREB [facility] EMERGENCY DEPARTMENT INFARCT NO RESID DEFICIT E90175 OTHER 01-24-2016 [facility] ARTHROPATHI INC ES NEC RIGHT SHOULDER L22382 EFFUSION 01-24-2016 [place] [facility]ICAL [facility] IMAGING ASS R609 EDEMA 01-24-2016 [place] UNSPECIFIED [facility]ICAL IMAGING ASS M1990 UNSPECIFIED 11-05-2015 [facility] OSTEOARTHRI INC TIS UNSPECIFIED SITE R062 WHEEZING 10-16-2015 [facility] INTERNAL MED J159 UNSPECIFIED 10-09-2015 [facility] BACTERIAL VALLEY PNEUMONIA INTERNAL MED M791 MYALGIA 10-02-2015 [facility] INTERNAL MED 2724 OTHER AND 08-01-2015 [facility] UNSPECIFIED VALLEY INTERNAL HYPERLIPIDE MED ALEIDA 88926 UNSPECIFIED 08-01-2015 [facility] 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 24545 UNSPECIFIED 08-01-2015 [facility] ARTHROPATHY INTERNAL SHOULDER MED REGION 7291 UNSPECIFIED 08-01-2015 [facility] MYALGIA [facility] AND INTERNAL MYOSITIS MED Immunization Name Date Rout CVX Reac Dose Comm Prov Is Faci e tion ent ider Refu lity Give sed n IIV4 11-0 158 YOLY No LICK 3-20 ON ING VACC 15 VIVI VALL EY SPLI INTE T RNAL VIRU MED S 0.5 ML DOS FOR IM USE Procedures Procedure DOS Code Location Performer Comment CYANOCOBA 32102 [facility] PALLAVI 6 [facility] VITAMIN INC INC B-[address] [place] [address] [facility] MAGNESIUM 6 [facility] INC INC BLOOD 71621 [facility] COUNT 6 [facility] COMPLETE INC INC AUTO&AUTO DIFRNTL WBC LIPID 63648 [facility] PANEL 6 [facility] [place] [address] [facility] THYROID 6 [facility] STIMULATI INC INC NG HORMONE TSH COLLECTIO 25677 [facility] N VENOUS 6 [facility] B[facility] INC VENIPUNCT URE COMPREHEN 57773 [facility] SIVE 6 [facility] METABOLIC INC INC PANEL THERAPEUT 77175 [facility] IC PX 1/> 6 [facility] AREAS INC INC EACH 15 MIN EXERCISES THERAPEUT 22975 [facility] IC PX 1/> 6 [facility] AREAS INC INC EACH 15 MIN EXERCISES THERAPEUT 64143 [facility] OSEI IC 6 [facility] HOL PROPHYLAC INTERNAL TIC/DX MED INJECTION SUBQ/IM INJECTION J3301 [facility] OSEI 6 [facility] TRIAMCINO INTERNAL LONE MED ACETONIDE NOS 10 MG APPL 98520 [facility] MODALITY 6 [facility] 1/> AREAS INC INC IONTOPHOR ESIS EA 15 MIN THERAPEUT 10533 [facility] IC PX 1/> 6 [facility] AREAS INC INC EACH 15 MIN EXERCISES APPL 05468 [facility] MODALITY 6 [facility] 1/> AREAS INC INC ULTRASOUN D EA 15 MIN UNCLASSIF J3490 [facility] IED DRUGS 6 [facility] INC INC THERAPEUT 22154 [facility] IC PX 1/> 6 [facility] AREAS INC INC EACH 15 MIN EXERCISES THERAPEUT 76525 [facility]RA IC PX 1/> 6 [facility] AREAS INC INC EACH 15 MIN EXERCISES THERAPEUT 66573 [facility]RA IC PX 1/> 6 [facility] AREAS INC INC EACH 15 MIN EXERCISES THERAPEUT 29143 [facility] IC PX 1/> 6 [facility] AREAS INC INC EACH 15 MIN EXERCISES THERAPEUT 59499 [facility] IC PX 1/> 6 [facility] AREAS INC INC EACH 15 MIN EXERCISES THERAPEUT 26533 [facility] IC PX 1/> 6 [facility] AREAS INC INC EACH 15 MIN EXERCISES THERAPEUT 11296 [facility] IC PX 1/> 6 [facility] AREAS INC INC EACH 15 MIN EXERCISES MANUAL 30966 [facility] THERAPY 6 [facility] TQS 1/> [facility] INC REGIONS EACH 15 MINUTES E-STIM G0283 [facility] 1/> AREAS 6 MEM HOS[facility] MEM HOSP OTH THAN INC INC WND CARE PART TX PLAN E-STIM G0283 [facility] 1/> AREAS 6 [facility] OTH THAN INC INC WND CARE PART TX PLAN THERAPEUT 62070 [facility] IC PX 1/> 6 [facility] AREAS INC INC EACH 15 MIN EXERCISES THERAPEUT 94156 [facility] IC PX 1/> 6 [facility] AREAS INC INC EACH 15 MIN EXERCISES MANUAL 71506 [facility] THERAPY 6 [facility] TQS 1/> INC INC REGIONS EACH 15 MINUTES E-STIM G0283 [facility] 1/> AREAS 6 [facility]OSP OTH THAN INC INC WND CARE PART TX PLAN PHYSICAL 74168 [facility] THERAPY 6 [facility] EVALUATIO INC INC N [address]809 [place] [facility] GUIDANCE 6 MEDICAL VIVI NEEDLE SERV PLACEMENT FOUNDATIO IMG S&I N ANES 13991 [place] GAMBREL ARTHRS 6 MEDICAL CARMELITA HUMERAL SERVICES H/N STRNCLAV & SHOULDER NOS SINGLE 97314 [place] [facility] NERVE 6 MEDICAL VIVI BLOCK SERV INJECTION FOUNDATIO ARM N NERVE ARTHROSCO 87042 [place] [facility] PY 6 MEDICAL SHOULDER SERV W/CORACOA FOUNDATIO CRM N LIGMNT RELEASE ARTHROSCO 53226 [place] [facility] PY 6 MEDICAL SHOULDER SERV ROTATOR FOUNDATIO CUFF N REPAIR ARTHROSCO 91855 [place] [facility] PY 6 MEDICAL SHOULDER SERV BICEPS FOUNDATIO TENODESIS N ECG 13386 [facility] 6 Y Y ECG [facility] W/LEAST 12 LDS TRCG ONLY W/O I&R ECG 79700 [place] [facility] ROUTINE 6 MEDICAL ECG SERV W/LEAST FOUNDATIO 12 LDS N I&R ONLY HRT 0001F [facility] FAILURE 6 VALLEY VIVI ASSESSED INTERNAL MED ECG 32723 [facility] ROUTINE 6 [facility] ECG MEDICAL W/LEAST G 12 LDS W/I&R ARTHROCEN 83377 [place] [facility] TESIS 6 MEDICAL ASPIR&/IN SERV J MAJOR FOUNDATIO JT/BURSA N W/O US INJECTION J3301 [place] [facility] 6 MEDICAL TRIAMCINO SERV LONE FOUNDATIO ACETONIDE N NOS 10 MG MRI ANY 60145 [facility] JT UPPER 6 [facility] EXTREMITY INC INC W/O CONTRAST MATRL THERAPEUT 65899 [facility] IC PX 1/> 5 [facility] AREAS INC INC EACH 15 MIN EXERCISES THERAPEUT 84466 [facility] IC PX 1/> 5 [facility] AREAS INC INC EACH 15 MIN EXERCISES E-STIM G0283 [facility] 1/> AREAS 5 [facility] OTH THAN INC INC WND CARE PART TX PLAN APPL 06455 [facility] MODALITY 5 [facility] 1/> AREAS INC INC ULTRASOUN D EA 15 MIN THERAPEUT 34627 [facility] IC PX 1/> 5 [facility] AREAS INC INC EACH 15 MIN EXERCISES THERAPEUT 71796 [facility] IC PX 1/> 5 [facility] AREAS INC INC EACH 15 MIN EXERCISES APPL 11058 [facility] MODALITY 5 [facility] 1/> AREAS INC INC IONTOPHOR ESIS EA 15 MIN MANUAL 30864 [facility] THERAPY 5 [facility] TQS 1/> INC INC REGIONS EACH 15 MINUTES APPL 48751 [facility] MODALITY 5 [facility] 1/> AREAS INC INC ULTRASOUN D EA 15 MIN UNCLASSIF J3490 [facility] IED DRUGS 5 [facility] INC INC UNCLASSIF J3490 [facility] IED DRUGS 5 [facility] INC INC APPL 54895 [facility] MODALITY 5 [facility] 1/> AREAS INC INC IONTOPHOR ESIS EA 15 MIN THERAPEUT 54309 [facility] IC PX 1/> 5 [facility] AREAS INC INC EACH 15 MIN EXERCISES PHYSICAL 74278 [facility] THERAPY 5 [facility] EVALUATIO INC INC N RADEX 19450 [facility] SHOULDER 5 [facility] COMPLETE INC INC MINIMUM 2 VIEWS DEMO&/MARYLOU 12615 [facility] L OF PT 5 [facility] UTILIZ INTERNAL AERSL MED GEN/NEB/I NHLR/IP THERAPEUT 52455 [facility] IC 5 [facility] PROPHYLAC INTERNAL TIC/DX MED INJECTION SUBQ/IM NONINVASI 71360 [facility] VE 5 [facility] EAR/PULSE INTERNAL OXIMETRY MED SINGLE DETER INJECTION J0696 [facility] 5 [facility] CEFTRIAXO INTERNAL NE SODIUM MED PER 250 MG IM ADM 07748 [facility] PRQ ID 5 [facility] SUBQ/IM INTERNAL NJXS 1 MED VACCINE IIV4 VACC 93727 [facility] SPLIT 5 [facility] VIRUS 0.5 INTERNAL ML DOS MED FOR IM USE COLLECTIO 95885 [facility] N VENOUS 5 [facility] BLOOD INTERNAL VENIPUNCT MED URE Encounters Encounter Start End Date Code Location Performer Type Date OFFICE 30984 [facility]I OUTPATIEN 6 6 [facility] T VISIT INTERNAL 15 MED MINUTES OFFICE 74657 [facility] ALLKRISTINA JR OUTPATIEN 6 6 PHYSICIAN DURGA T NEW 20 S GROUP MINUTES OFFICE 03857 MIGUEL ÁNGEL ANGLINAndreia OUTPATIEN 6 6 MEDICAL T VISIT SERV 15 FOUNDATIO MINUTES N OFFICE 12591 [facility] OUT[facility]IEN 6 6 VALLEY T VISIT INTERNAL 15 MED MINUTES HOSPITAL [facility] - 6 6 [facility] OUTPATIEN INC T OFFICE 89782 [facility] OUTPATIEN 6 6 [facility]I T VISIT INTERNAL 25 MED MINUTES OFFICE 89667 [facility] OUTPATIEN 6 6 [facility]I T VISIT 5 INTERNAL MINUTES MED OFFICE 55033 [facility] OUTPATIEN 6 6 [facility] T VISIT INTERNAL 15 MED MINUTES OFFICE 73836 [facility] OUTPATIEN 6 6 [facility] T VISIT INTERNAL 15 MED MINUTES [facility] - 6 6 [facility] OUTPATIEN [facility] T OFFICE 68177 [facility] OUTPATIEN 6 6 VALLEY VIVI T VISIT INTERNAL 15 MED MINUTES [facility] - 6 6 [facility] OUTPATIEN [facility] - 6 6 Y OUTPATIEN HOSPITAL T OFFICE 00328 [facility] OUTPATIEN 6 6 Y T VISIT 5 HOSPITAL MINUTES OFFICE 40192 [facility] OUTPATIEN 6 6 [facility]I T VISIT INTERNAL 15 MED MINUTES OFFICE 53327 [facility] OUTPATIEN 6 6 [facility] VIVI T VISIT 5 INTERNAL MINUTES MED OFFICE 45785 [facility] 6 6 [facility] T VISIT MEDICAL 25 G MINUTES OFFICE 29531 MIGUEL ÁNGEL NAIDU SCO OUTPATIEN 6 6 MEDICAL T VISIT SERV 25 FOUNDATIO MINUTES N OFFICE 57355 MIGUEL ÁNGEL NAIDU SCO CONSULTAT 6 6 MEDICAL ION SERV NEW/ESTAB FOUNDATIO PATIENT N 60 MIN [facility]EDRA - 6 6 [facility] OUTPATIEN INC T OFFICE 13663 [facility] OUTPATIEN 6 6 VALLEY VIVI T VISIT INTERNAL 15 MED MINUTES [facility] - 5 5 [facility] OUTPATIEN INC [facility] - 5 5 [facility] OUTPATIEN INC T OFFICE 08479 [facility] OUTPATIEN 5 5 VALLEY VIVI T VISIT INTERNAL 15 MED MINUTES OFFICE 21545 [facility] OUTPATIEN 5 5 VALLEY VIVI T VISIT INTERNAL 15 MED MINUTES OFFICE 26551 [facility] OUTPATIEN 5 5 VALLEY VIVI T VISIT INTERNAL 15 MED MINUTES OFFICE 73044 [facility] OUTPATIEN 5 5 VALLEY VIVI T VISIT INTERNAL 15 MED MINUTES OFFICE 32411 [facility] OUTPATIEN 5 5 [facility]LEY VIVI T VISIT INTERNAL 25 MED MINUTES
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
--- OUTSIDE RECORDS SUMMARY | 2017-06-27 18:09 | External Medical Summary Rpt ---
Demographics Preferred Language Paraguayan Marital Status Unknown Episcopalian Affiliation Unknown Race Unknown Ethnic Group Unknown Author Author , FRIDA GALICIA Address Unknown Phone Immunization Unable to retrieve immunization data due to connection failure with Immunization Registry. Please try again later.
[2017-06-27] MEDS ORDERED: LEVOTHYROXINE0.15 M1 PO (18:27)
[2017-06-27] MEDS ORDERED: LOSARTAN POTASS1 TAB PO (18:30)
[2017-06-27] MEDS ORDERED: CLOPIDOGREL75 M2 PO (18:32)
[2017-06-27] MEDS ORDERED: ROPINIROLE HYDRO2 MG PO (18:33)
[2017-06-27 19:11] LABS: LYMPH # 1.7 K/mm3 (0.7-4.5); LYMPH % 15.7 % (10-50)
[2017-06-27 19:21] LABS: URINE BILIRUBIN - DIPSTICK NEGATIVE (NEG); URINE BLOOD 2+ (NEG)
[2017-06-27 19:23] VITALS: BP 160/107
[2017-06-27 19:49] LABS: HEMOGLOBIN 15.6 g/dL (14.1-18.0)
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
== END 2017-06-27 19:00 | disposition short-term general hospital (02) ==
LOC: ER 17:36
PROVIDERS: Emergency Medicine
PROC: 0JQ10ZZ Repair Face Subcutaneous Tissue and Fascia, Open Approach (ICD-10-PCS; principal; 2017-06-27)
DX: S01.111A Laceration without foreign body of right eyelid and periocular area, initial encounter (principal); V89.2XXA Person injured in unspecified motor-vehicle accident, traffic, initial encounter; S02.81XA Fracture of other specified skull and facial bones, right side, initial encounter for closed fracture